=== PATIENT | male | born 1975 | race Caucasian/White ===

== ENCOUNTER 2016-07-16 17:00 | Emergency (ER) | payer BC, OTHER ==
[~2016-07-16] VITALS: Ht 182.9 cm; Wt 104.6 kg
[2016-07-16] MEDS ORDERED: LIDOCAINE 1%, 20ML SQ ONE (17:30)
[2016-07-16] MEDS ORDERED: LIDOCAINE 1%, 20ML ONE ×2 (17:40→21:15)
[2016-07-16] MEDS ORDERED: SODIUM CHLORIDE FLUSH 10ML SYR IVF ONE (18:00)
[2016-07-16 18:23] LABS: BLOOD UREA NITROGEN 24 mg/dL (7-18)
[2016-07-16] MEDS ORDERED: OMNIPAQUE 350 MG/ML, 100ML BOTTLE ONE (20:07)
[2016-07-16 22:07] VITALS: BP 118/82
== END 2016-07-16 22:10 | disposition home or self-care (01) ==
LOC: ED 21:30
DX: L02.215 Cutaneous abscess of perineum (principal); F17.200 Nicotine dependence, unspecified, uncomplicated
CPT/HCPCS: 36415; 46050; 74177; 80048; 82040; 83605; 85025; 99285; Q9967

== ENCOUNTER 2020-09-08 06:40 | Emergency (ER) | payer BC ==
[~2020-09-08] VITALS: Ht 182.9 cm; Wt 86.8 kg
[2020-09-08] MEDS ORDERED: ONDANSETRON 2MG/ML, 2ML ONE (07:17)
[2020-09-08] MEDS ORDERED: DICYCLOMINE 20 MG TABLET ONE (07:17)
[2020-09-08] MEDS ORDERED: DICYCLOMINE 10 MG/ML, 2ML ONE (07:23)
[2020-09-08] MEDS ORDERED: SODIUM CHLORIDE FLUSH 10ML SYR IVF ONE (07:30)
[2020-09-08] MEDS ORDERED: DICYCLOMINE 10 MG/ML, 2ML IM ONE (07:30)
[2020-09-08] MEDS ORDERED: SODIUM CHLORIDE 0.9% 1,000ML IVBOLUS ONE ×2 (07:30→09:00)
[2020-09-08 07:34] LABS: MICROSCOPIC INDICATED
--- NOTE | 2020-09-08 07:40 | NUR ---
PT HAS CO DIARRHEA W NAUSEA , LOWER ABDOMINAL PAIN AND CRAMPS FOR 1 WEEK. MEDICATED, IVF PER ORDERS, LABS, UA. PT RESTING COMFORTABLE
[2020-09-08 07:44] LABS: BASOPHILS % (AUTO) 0 % (0-1); EOSINOPHILS % (AUTO) 0 % (1-7); LYMPHOCYTES % (AUTO) 8 % (22-44); MEAN CORPUSCULAR HEMOGLOBIN 31.7 pg (27.5-34.5); MEAN CORPUSCULAR HGB CONC 34.6 g/dL (33.2-36.2); MEAN PLATELET VOLUME 7.4 fL (7.4-10.4); MONOCYTES % (AUTO) 10 % (2-9); NEUTROPHILS % (AUTO) 81 % (42-75); PLATELET COUNT 221 x10^3/uL (130-400); RED BLOOD COUNT 5.15 x10^6/uL (4.38-5.82); RED CELL DISTRIBUTION WIDTH 13.4 % (9.4-14.8)
[2020-09-08 07:59] LABS: ALBUMIN 2.9 g/dL (3.4-5.0); ANION GAP 7 mmol/L (5-15); CALCIUM 8.4 mg/dL (8.5-10.1); CHLORIDE 104 mmol/L (98-107)
[2020-09-08] MEDS ORDERED: ONDANSETRON 2MG/ML, 2ML IVPush ONE (08:00)
[2020-09-08 08:03] LABS: ALANINE AMINOTRANSFERASE 28 U/L (12-78); ALKALINE PHOSPHATASE 62 U/L (45-117); BILIRUBIN,TOTAL 0.7 mg/dL (0.2-1.0); CREATININE 0.98 mg/dL (0.7-1.3); TOTAL PROTEIN 6.2 g/dL (6.4-8.2)
--- NOTE | 2020-09-08 08:16 | NUR ---
PT RESTING. NO N/V. CALL LIGHT IN REACH
--- NOTE | 2020-09-08 08:39 | NUR ---
PT HAS CO NAUSEA AND CRAMPING, AMBULATED TO BATHROOM W STEADY GAIT FOR STOOL SAMPLE
[2020-09-08] MEDS ORDERED: METOCLOPRAMIDE 5 MG/ML, 2ML IVPush ONE (09:00)
[2020-09-08] MEDS ORDERED: FAMOTIDINE 20 MG/2 ML IVPush ONE (09:00)
[2020-09-08] MEDS ORDERED: METOCLOPRAMIDE 5 MG/ML, 2ML ONE (09:01)
[2020-09-08] MEDS ORDERED: FAMOTIDINE 20 MG/2 ML ONE (09:01)
--- NOTE | 2020-09-08 09:07 | NUR ---
MEDICATED PER ORDERS, PT STATES HE HAS CRAMPING AND PAIN AT THIS TIME. MD AT BEDSIDE.
[2020-09-08] MEDS ORDERED: MORPHINE SULFATE 4 MG/ML, 1ML ONE (09:12)
--- NOTE | 2020-09-08 09:14 | NUR ---
PT TO BATHROOM FOR BM
--- NOTE | 2020-09-08 09:27 | NUR ---
PT STATES PAIN RELEIF AFTER MEDICATION. APPLIED 2L O2 WHILE SLEEPING,. PT O2 86 RA
[2020-09-08] MEDS ORDERED: MORPHINE SULFATE 4 MG/ML, 1ML IVPush PRN (09:30)
[2020-09-08 10:13] LABS: CLOSTRIDIUM DIFFICILE ANTIGEN POSITIVE; CLOSTRIDIUM DIFFICILE TOXIN POSITIVE (Negative)
--- NOTE | 2020-09-08 10:24 | NUR ---
CDIFF POSITIVE FROM LAB. PT WOULD LIKE TO BE DC HOME INSTEAD OF ADMIT. PT FEELING BETTER.
[2020-09-08 11:16] VITALS: BP 122/75
--- NOTE | 2020-09-08 11:16 | NUR ---
Patient given discharge instructions and they have confirmed that they understand the instructions. Patient ambulatory with steady gait.
== END 2020-09-08 11:23 | disposition home or self-care (01) ==
LOC: ED 09:39
DX: A04.72 Enterocolitis due to Clostridium difficile, not specified as recurrent (principal); R00.0 Tachycardia, unspecified
CPT/HCPCS: 36415; 80053; 81001; 83690; 85025; 87086; 87324; 89055; 96361; 96372; 96374; 96375; 99284; J0500; J2270; J2405; J2765; J7030